=== PATIENT | female | born 1950 | race African-American/Black ===

== ENCOUNTER 2017-07-07 06:09 | Inpatient (IN) | payer OTHER ==
[~2017-07-07] VITALS: Ht 160 cm; Wt 89.4 kg
[2017-07-07] VITALS (8 sets, daily range): BP systolic 146–170; BP diastolic 76–88
[~2017-07-07 06:09] MED LIST: AMLO5TAB4 PO; ASPI-1159 PO; CLOP75TA33 PO; COR25 PO; HYDR-523 PO; IPRA0.2S51; LIP40 PO; LISI10TA5 PO; MYCOC15 TP; humulin SUBCUT
[2017-07-07] MEDS ORDERED: IPRATROPIUM BROMIDE (0.02%) 0.5MG/2.5ML NEB HHN STA (06:20)
[2017-07-07] MEDS ORDERED: METHYLPREDNISOLONE SOD SUCC 125 MG/2 ML VIAL IV STA (06:20)
[2017-07-07] MEDS ORDERED: MAGNESIUM 2 G PREMIX 50 ML IV STA (06:20)
[2017-07-07] MEDS ORDERED: ALBUTEROL (0.083%) 2.5MG/3ML NEB HHN STA (06:20)
[2017-07-07] MEDS ORDERED: LEVOFLOXACIN 750MG PREMIX 150 ML IV ONE (06:30)
[2017-07-07] MEDS ORDERED: FUROSEMIDE 20MG/2ML VIAL IVP ONE (06:30)
[2017-07-07 07:13] LABS: BASOPHILS % 0.7 % (0.0-2.0); EOSINOPHILS % 3.8 % (0.0-5.0); HEMATOCRIT. 35.3 % (36.0-48.0); HEMOGLOBIN. 10.8 g/dL (12.0-16.0); LYMPHOCYTES % 13.2 % (20.0-50.0); MEAN CORPUSCULAR VOLUME 92.1 fL (81.0-99.0); MEAN PLATELET VOLUME 9.6 fl (7.4-10.4); MONOCYTES % 11.6 % (2.0-8.0); NEUTROPHILS % 70.7 % (40.0-76.0); PLATELET 237 x1000/uL (130-400); RED BLOOD CELL COUNT 3.83 mill/uL (4.2-5.4); RED CELL DISTRIBUTION WIDTH 16.3 % (11.6-14.6)
[2017-07-07 07:15] LABS: PARTIAL THROMBOPLASTIN TIME 25.7 sec (23.4-31.0); PROTHROMBIN TIME 10.4 sec (9.4-11.6)
[2017-07-07 07:22] LABS: CARBON DIOXIDE 19 mEq/L (21-32); CHLORIDE 110 mEq/L (98-107); TROPONIN I < 0.02 ng/mL (0.00-0.04)
[2017-07-07 07:40] LABS: GLUCOSE URINE NEGATIVE (NEGATIVE); KETONES URINE NEGATIVE (NEGATIVE); LEUKOCYTE ESTERASE URINE TRACE (NEGATIVE); NITRITE URINE NEGATIVE (NEGATIVE); OCCULT BLOOD URINE TRACE (NEGATIVE); PH URINE 5.5 (4.5-8.0); PROTEIN URINE 3+ (NEGATIVE); SPECIFIC GRAVITY URINE 1.012 (1.005-1.030); UROBILINOGEN URINE 0.2 E.U./dL (0.2-1.0)
[2017-07-07 07:44] LABS: CLARITY URINE CLEAR (CLEAR); COLOR URINE YELLOW (YELLOW)
[2017-07-07 08:07] LABS: BG BASE EXCESS -6.8 mmol/L (-2.0-2.0); BG BILEVEL POS AIRWAY PRESSURE 15/5; BG DEOXYHEMOGLOBIN 0.8 % (0.0-5.0); BG FRACTION INSPIRED OXYGEN 50; BG HCO3 ACT 18.6 mmol/L (22.0-26.0); BG METHEMOGLOBIN 0.1 % (0.0-1.5); BG OXYGEN SATURATION 99.2 % (92.0-98.5); BG OXYHEMOGLOBIN 97.1 % (94.0-97.0); BG PCO2 36.9 mmHg (35.0-45.0); BG PH 7.321 (7.350-7.450); BG PO2 205.6 mmHg (75.0-100.0); BG SAMPLE SITE RIGHT BRACHIAL; BG TOTAL HEMOGLOBIN 11.2 g/dL (12.0-18.0); BG VENT MODE MASK - BIPAP
[2017-07-07] MEDS ORDERED: GUAIFENESIN 200MG/10ML SUGAR FREE UDC PO PRN (10:00)
[2017-07-07] MEDS ORDERED: NITROGLYCERIN 0.4MG TABLET SL SL PRN (10:00)
[2017-07-07] MEDS ORDERED: MAGNESIUM/ALUMINUM HYDROXIDE/SIMETHICONE 30ML UDC PO PRN (10:00)
[2017-07-07] MEDS ORDERED: NA PHOS,M-B/NA PHOS,DI-BA ENEMA 118ML PR PRN (10:00)
[2017-07-07] MEDS ORDERED: DEXTROSE 50% WATER 50ML SYRINGE IV PRN (10:00)
[2017-07-07] MEDS ORDERED: ACETAMINOPHEN 325MG TABLET PO PRN (10:00)
[2017-07-07] MEDS ORDERED: IPRATROPIUM/ALBUTEROL 0.5-3(2.5)MG/3ML NEB INH PRN (10:00)
[2017-07-07] MEDS ORDERED: DIPHENHYDRAMINE 50MG/ML VIAL IV PRN (10:00)
[2017-07-07] MEDS ORDERED: LORAZEPAM 0.5MG TABLET PO PRN (10:00)
[2017-07-07] MEDS ORDERED: DOCUSATE SODIUM 100MG CAPSULE PO PRN (10:00)
[2017-07-07] MEDS ORDERED: TRAMADOL 50MG TABLET PO PRN (10:00)
[2017-07-07] MEDS ORDERED: ONDANSETRON HCL 4MG/2ML VIAL IV PRN (10:00)
[2017-07-07] MEDS ORDERED: MORPHINE SULFATE 2 MG/ML CPJ (NOT FOR IM USE) IV PRN (10:00)
[2017-07-07] MEDS ORDERED: LIDOCAINE HCL/PF 1% 2ML VIAL ONE (10:51)
[2017-07-07] MEDS: INSULIN LISPRO 100 UNITS/ML SUBCUT SCH ×3 (11:36→21:13)
[2017-07-07] MEDS: BLOOD SUGAR DIAGNOSTIC STRIP TEST SCH ×3 (11:36→20:58)
[2017-07-07 11:37] LABS: BG BASE EXCESS -5.6 mmol/L (-2.0-2.0); BG CARBOXYHEMOGLOBIN 1.2 % (0.5-1.5); BG DEOXYHEMOGLOBIN 1.6 % (0.0-5.0); BG FRACTION INSPIRED OXYGEN 28; BG METHEMOGLOBIN 0.3 % (0.0-1.5); BG OXYGEN SATURATION 98.4 % (92.0-98.5); BG OXYHEMOGLOBIN 96.9 % (94.0-97.0); BG PCO2 34.3 mmHg (35.0-45.0); BG PH 7.362 (7.350-7.450); BG PO2 115.1 mmHg (75.0-100.0); BG SAMPLE SITE RIGHT BRACHIAL; BG TOTAL HEMOGLOBIN 11.3 g/dL (12.0-18.0); BG VENT MODE NASAL CANNULA
[2017-07-07] MEDS ORDERED: IPRATROPIUM/ALBUTEROL 0.5-3(2.5)MG/3ML NEB HHN PRN (14:00)
[2017-07-07] MEDS ORDERED: METHYLPREDNISOLONE SOD SUCC 125 MG/2 ML VIAL IV SCH (14:00)
[2017-07-07 17:14] LABS: AMMONIA < 10 uMol/L (<32)
[2017-07-07 17:24] LABS: CREATINE KINASE MB FRACTION 5.5 ng/mL (0.5-3.6)
[2017-07-07] MEDS: CARVEDILOL 3.125 MG TABLET PO SCH (17:27)
[2017-07-07 17:35] LABS: TROPONIN I 1.3 ng/mL (0.00-0.04)
[2017-07-07 17:59] LABS: T4 FREE 1.12 ng/dL (0.76-1.46)
[2017-07-07] MEDS: FUROSEMIDE 40MG/4ML VIAL IVP SCH (18:29)
[2017-07-07] MEDS: CEFTRIAXONE 1 G PREMIX 50 ML IV SCH (18:29)
[2017-07-07] MEDS: ENOXAPARIN 100MG/ML SYR SUBCUT SCH (18:30)
[2017-07-07] MEDS ORDERED: SODIUM CHLORIDE 0.45% 1,000 ML IV SCH (19:00)
[2017-07-07] MEDS: IPRATROPIUM/ALBUTEROL 0.5-3(2.5)MG/3ML NEB HHN SCH (20:09)
[2017-07-07] MEDS: BUDESONIDE 0.5MG/2ML NEB HHN SCH (20:09)
[2017-07-07] MEDS: SODIUM CHLORIDE 0.45% 1,000 ML IV SCH (20:50)
[2017-07-07] MEDS: SPIRONOLACTONE 25MG TABLET PO SCH (20:55)
[2017-07-07] MEDS: LISINOPRIL 20MG TABLET PO SCH (20:56)
[2017-07-07] MEDS ORDERED: ZOLPIDEM TARTRATE 5MG TABLET PO PRN (21:00)
[2017-07-07] MEDS ORDERED: ENOXAPARIN 30MG/0.3ML SYR SUBCUT SCH (21:00)
[2017-07-07] MEDS ORDERED: ATORVASTATIN CALCIUM 40MG TABLET PO SCH (21:00)
[2017-07-07] MEDS ORDERED: NITROGLYCERIN OINT 1GM/INCH UDPKT TD SCH (21:00)
[2017-07-07] MEDS ORDERED: FAMOTIDINE 20MG/2ML VIAL IV SCH (21:00)
[2017-07-07] MEDS: NITROGLYCERIN OINT 1GM/INCH UDPKT TD SCH (21:06)
[2017-07-07 21:16] LABS: FOLIC ACID (FOLATE) SERUM 9.8 ng/mL (>5.38)
[2017-07-07] MEDS: CLONIDINE 0.1MG TABLET PO PRN (22:35)
[2017-07-08] VITALS (12 sets, daily range): BP systolic 108–157; BP diastolic 73–90
[2017-07-08] MEDS: IPRATROPIUM/ALBUTEROL 0.5-3(2.5)MG/3ML NEB HHN SCH ×6 (00:05→16:59)
[2017-07-08 01:15] LABS: CREATINE KINASE MB FRACTION 3.9 ng/mL (0.5-3.6)
[2017-07-08 01:24] LABS: TROPONIN I 0.92 ng/mL (0.00-0.04)
[2017-07-08 03:04] LABS: *AMPHETAMINES SCREEN URINE NEGATIVE (NEGATIVE); *BARBITURATES SCREEN URINE NEGATIVE (NEGATIVE); *BENZODIAZEPINES SCREEN URINE NEGATIVE (NEGATIVE); *COCAINE SCREEN URINE NEGATIVE (NEGATIVE); CANNABINOID URINE SCREEN NEGATIVE (NEGATIVE); METHADONE URINE SCREEN NEGATIVE (NEGATIVE); OPIATES URINE SCREEN PRESUMTIVE POSITIVE (NEGATIVE); PHENCYCLIDINE URINE SCREEN NEGATIVE (NEGATIVE)
[2017-07-08] MEDS: NITROGLYCERIN OINT 1GM/INCH UDPKT TD SCH ×2 (05:42→13:20)
[2017-07-08] MEDS: CARVEDILOL 3.125 MG TABLET PO SCH (05:42)
[2017-07-08 05:57] LABS: BASOPHILS % 0.3 % (0.0-2.0); HEMATOCRIT. 30.2 % (36.0-48.0); HEMOGLOBIN. 10.2 g/dL (12.0-16.0); LYMPHOCYTES % 14.7 % (20.0-50.0); MEAN CORPUSCULAR HEMOGLOBIN 30.1 pg (28.0-32.0); MEAN CORPUSCULAR VOLUME 88.7 fL (81.0-99.0); MEAN PLATELET VOLUME 9.8 fl (7.4-10.4); MONOCYTES % 10.7 % (2.0-8.0); NEUTROPHILS % 74.3 % (40.0-76.0); PLATELET 199 x1000/uL (130-400); RED CELL DISTRIBUTION WIDTH 15.5 % (11.6-14.6)
[2017-07-08] MEDS: BLOOD SUGAR DIAGNOSTIC STRIP TEST SCH ×3 (07:35→17:19)
[2017-07-08] MEDS: SODIUM CHLORIDE 0.45% 1,000 ML IV SCH (07:45)
[2017-07-08] MEDS ORDERED: LEVOFLOXACIN 500MG PREMIX 100 ML IV SCH (08:00)
[2017-07-08] MEDS: INSULIN LISPRO 100 UNITS/ML SUBCUT SCH ×3 (08:00→17:27)
[2017-07-08] MEDS: BUDESONIDE 0.5MG/2ML NEB HHN SCH (08:26)
[2017-07-08] MEDS: SPIRONOLACTONE 25MG TABLET PO SCH (08:33)
[2017-07-08] MEDS: LISINOPRIL 20MG TABLET PO SCH (08:33)
[2017-07-08] MEDS: ENOXAPARIN 100MG/ML SYR SUBCUT SCH (08:33)
[2017-07-08] MEDS: FUROSEMIDE 40MG/4ML VIAL IVP SCH (08:34)
[2017-07-08] MEDS ORDERED: ASPIRIN 325MG EC TABLET PO SCH (09:00)
[2017-07-08 09:04] LABS: TROPONIN I 0.91 ng/mL (0.00-0.04)
[2017-07-08] MEDS ORDERED: CLOPIDOGREL 75MG TABLET PO SCH (13:30)
[2017-07-08] MEDS: CLONIDINE 0.1MG TABLET PO PRN (16:08)
[2017-07-08] MEDS: CEFTRIAXONE 1 G PREMIX 50 ML IV SCH (17:43)
[2017-07-08] MEDS ORDERED: CARVEDILOL 6.25 MG TABLET PO SCH (18:00)
[2017-07-08] MEDS ORDERED: ACETYLCYSTEINE 200MG/ML 20% VIAL 4ML PO SCH (21:00)
[2017-07-09] MEDS ORDERED: LEVOFLOXACIN 500MG PREMIX 100 ML IV SCH (08:00)
== END 2017-07-08 20:30 | disposition short-term general hospital (02) | DRG 871 ==
LOC: ER 06:09 → 5EST 06:54 → ENRESERV 07:20 → SUPCPDRO 09:50
PROVIDERS: ADMIT Internal Medicine; ATTEND Internal Medicine
PROC: 5A09357 Assistance with Respiratory Ventilation, Less than 24 Consecutive Hours, Continuous Positive Airway Pressure (ICD-10-PCS; principal; 2017-07-07)
DX: A41.9 Sepsis, unspecified organism (principal); G93.40 Encephalopathy, unspecified; J96.01 Acute respiratory failure with hypoxia; I21.4 Non-ST elevation (NSTEMI) myocardial infarction; N17.0 Acute kidney failure with tubular necrosis; I50.43 Acute on chronic combined systolic (congestive) and diastolic (congestive) heart failure; E44.0 Moderate protein-calorie malnutrition; E87.2 Acidosis; I13.0 Hypertensive heart and chronic kidney disease with heart failure and stage 1 through stage 4 chronic kidney disease, or unspecified chronic kidney disease; J44.1 Chronic obstructive pulmonary disease with (acute) exacerbation; N39.0 Urinary tract infection, site not specified; D63.8 Anemia in other chronic diseases classified elsewhere; N18.3 Chronic kidney disease, stage 3 (moderate); E66.9 Obesity, unspecified; E78.5 Hyperlipidemia, unspecified; F17.210 Nicotine dependence, cigarettes, uncomplicated; I25.10 Atherosclerotic heart disease of native coronary artery without angina pectoris; E11.51 Type 2 diabetes mellitus with diabetic peripheral angiopathy without gangrene; E11.22 Type 2 diabetes mellitus with diabetic chronic kidney disease; I27.20 Pulmonary hypertension, unspecified; I25.5 Ischemic cardiomyopathy; I25.2 Old myocardial infarction; Z79.4 Long term (current) use of insulin; Z79.82 Long term (current) use of aspirin; Z80.3 Family history of malignant neoplasm of breast; Z82.49 Family history of ischemic heart disease and other diseases of the circulatory system; Z86.73 Personal history of transient ischemic attack (TIA), and cerebral infarction without residual deficits; Z95.5 Presence of coronary angioplasty implant and graft; Z79.899 Other long term (current) drug therapy; Z81.8 Family history of other mental and behavioral disorders; Z68.34 Body mass index [BMI] 34.0-34.9, adult
CPT/HCPCS: 36415; 36600; 70551; 71010; 80048; 80053; 80061; 80305; 81001; 82140; 82375; 82550; 82553; 82607; 82746; 82805; 82962; 83036; 83605; 83690; 83880; 84439; 84443; 84484; 85025; 85379; 85610; 85730; 87040; 87086; 93005; 93306; 93970; 94640; 94660; 94664; 96365; 96367; 96375; 99291; J0696; J1650; J1815; J1940; J1956; J2930; J3475; J3490; J7040; J7608; J7611; J7620; J7626; A4315

== ENCOUNTER 2018-05-03 12:04 | Emergency (ER) | payer OTHER ==
[~2018-05-03] VITALS: Ht 167.6 cm; Wt 85.0 kg
[2018-05-03] MEDS ORDERED: SODIUM CHLORIDE 0.9% 1,000 ML IV ONE (12:21)
[2018-05-03 15:16] LABS: BASOPHILS % 0.6 % (0.0-2.0); HEMATOCRIT. 24.1 % (36.0-48.0); HEMOGLOBIN. 7.7 g/dL (12.0-16.0); LYMPHOCYTES % 15.3 % (20.0-50.0); MEAN CORPUSCULAR HEMOGLOBIN 27.9 pg (28.0-32.0); MEAN CORPUSCULAR VOLUME 86.8 fL (81.0-99.0); MEAN PLATELET VOLUME 9.1 fl (7.4-10.4); MONOCYTES % 9.3 % (2.0-8.0); NEUTROPHILS % 65.8 % (40.0-76.0); PLATELET 224 x1000/uL (130-400); RED BLOOD CELL COUNT 2.77 mill/uL (4.2-5.4); RED CELL DISTRIBUTION WIDTH 16.2 % (11.6-14.6)
[2018-05-03 15:20] LABS: CHLORIDE 116 mEq/L (98-107)
[2018-05-03 16:04] VITALS: BP 134/49
[2018-05-03 16:30] LABS: CLARITY URINE CLEAR (CLEAR); COLOR URINE YELLOW (YELLOW); KETONES URINE NEGATIVE (NEGATIVE); LEUKOCYTE ESTERASE URINE 1+ (NEGATIVE); NITRITE URINE NEGATIVE (NEGATIVE); OCCULT BLOOD URINE NEGATIVE (NEGATIVE); PROTEIN URINE 1+ (NEGATIVE); SPECIFIC GRAVITY URINE 1.009 (1.005-1.030); UROBILINOGEN URINE 0.2 E.U./dL (0.2-1.0)
== END 2018-05-03 17:50 | disposition home or self-care (01) ==
LOC: ER 12:09 → EDBEDREQ 14:28 → EDBEDREQSVC 14:28 → EDBEDREQTM 14:28 → ER 17:50 → CANBEDREQ 20:03
DX: R53.1 Weakness (principal); I11.0 Hypertensive heart disease with heart failure; E11.9 Type 2 diabetes mellitus without complications; E78.00 Pure hypercholesterolemia, unspecified; I50.9 Heart failure, unspecified; I25.2 Old myocardial infarction; F17.200 Nicotine dependence, unspecified, uncomplicated; Z79.82 Long term (current) use of aspirin; Z79.01 Long term (current) use of anticoagulants; Z88.6 Allergy status to analgesic agent; Z88.8 Allergy status to other drugs, medicaments and biological substances
CPT/HCPCS: 36415; 71045; 80053; 81003; 83605; 85025; 85610; 87040; 87086; 93005; 99285; J7030